=== PATIENT | male | born 1985 | race African-American/Black ===

== ENCOUNTER 2018-09-04 15:42 | Emergency (ER) | payer BC, MEDICAID ==
[~2018-09-04] VITALS: Ht 188 cm; Wt 86.2 kg
[~2018-09-04 15:42] MED LIST: RANITIDINE HCL150 MG PO
[2018-09-04 15:57] VITALS: BP 133/86
[2018-09-04] MEDS ORDERED: NORCO 10-325 T1 EACH ORAL (16:04)
[2018-09-04] MEDS ORDERED: HYDROcodone/Acetamin 10/325 tab ORAL ONE (16:45)
[2018-09-04] MEDS ORDERED: Methocarbamol 500mg tab ORAL ONE (16:45)
[2018-09-04] MEDS ORDERED: OMEPRAZOLE20 M2 ORAL (16:57)
[2018-09-04] MEDS ORDERED: TYLENOL EXTRA500 MG ORAL (16:58)
[2018-09-04] MEDS ORDERED: ROBAXIN500 MG PO (16:58)
[2018-09-04] MEDS ORDERED: LIDOCAINE700 M1 TP (16:58)
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
[2018-09-04 17:13] VITALS: BP 130/86
== END 2018-09-04 17:13 | disposition home or self-care (01) ==
LOC: EMR 16:36
DX: Z76.0 Encounter for issue of repeat prescription (principal); M54.5 Low back pain; Z87.19 Personal history of other diseases of the digestive system
CPT/HCPCS: 99283